=== PATIENT | female | born 1930 | race African-American/Black ===

== ENCOUNTER 2018-03-06 11:08 | Inpatient (IN) | payer MEDICARE, MEDICAID ==
[~2018-03-06] VITALS: Ht 149.9 cm; Wt 62.1 kg
[2018-03-06] MEDS ORDERED: MORPHINE SULFATE 4 MG/ML CPJ (NOT FOR IM USE) IV STA (13:06)
[2018-03-06] MEDS ORDERED: ONDANSETRON HCL 4MG/2ML INJ IV STA (13:06)
[2018-03-06] MEDS ORDERED: SODIUM CHLORIDE 0.9% 1,000 ML IV ONE (13:06)
[2018-03-06 13:58] LABS: BASOPHILS % 0.5 % (0.0-2.0); EOSINOPHILS % 0.6 % (0.0-5.0); HEMOGLOBIN. 13.3 g/dL (12.0-16.0); LYMPHOCYTES % 18.1 % (20.0-50.0); MEAN CORPUSCULAR VOLUME 90.5 fL (81.0-99.0); MEAN PLATELET VOLUME 7.9 fl (7.4-10.4); MONOCYTES % 7.8 % (2.0-8.0); PLATELET 445 x1000/uL (130-400); RED BLOOD CELL COUNT 4.43 mill/uL (4.2-5.4); RED CELL DISTRIBUTION WIDTH 14.4 % (11.6-14.6)
[2018-03-06 13:59] LABS: CHLORIDE 103 mEq/L (98-107)
[2018-03-06] MEDS ORDERED: SODIUM CHLORIDE 0.9% 1,000 ML IV SCH (16:33)
[2018-03-06] MEDS ORDERED: ONDANSETRON HCL 4MG/2ML INJ IV PRN (21:00)
[2018-03-06] MEDS ORDERED: KETOROLAC 15MG/ML VIAL IV PRN (21:00)
[2018-03-06] MEDS ORDERED: HYDROCODONE/ACETAMINOPHEN 10/325MG TABLET PO PRN (21:00)
[2018-03-06] MEDS ORDERED: ACETAMINOPHEN 325MG TABLET PO PRN (21:00)
[2018-03-06] MEDS ORDERED: MAGNESIUM/ALUMINUM HYDROXIDE/SIMETHICONE 30ML UDC PO PRN (21:00)
[2018-03-06] MEDS ORDERED: CLONIDINE 0.1MG TABLET PO PRN (21:00)
[2018-03-06 22:00] VITALS: BP 134/80
[2018-03-06] MEDS: SODIUM CHLORIDE 0.9% INJ 3ML FLUSH IVF SCH (22:00)
[2018-03-07] VITALS: BP 134/99
[2018-03-07 04:00] VITALS: BP 134/64
[2018-03-07] MEDS: SODIUM CHLORIDE 0.9% INJ 3ML FLUSH IVF SCH ×2 (05:51→14:47)
[2018-03-07 08:00] VITALS: BP 144/70
[2018-03-07] MEDS: MORPHINE SULFATE 4 MG/ML CPJ (NOT FOR IM USE) IV PRN ×2 (11:02→16:58)
[2018-03-07 12:00] VITALS: BP 129/53
[2018-03-07] MEDS ORDERED: SENNOSIDES 8.6MG TABLET PO PRN (14:30)
[2018-03-07] MEDS: ENOXAPARIN 30MG/0.3ML SYR SUBCUT SCH (14:43)
[2018-03-07] MEDS: CELECOXIB 200MG CAPSULE PO SCH (14:44)
[2018-03-07 16:00] VITALS: BP_SYST 129; BP_SYST 130; BP_DIAS 56; BP_DIAS 70
[2018-03-07] MEDS: DOCUSATE SODIUM 100MG CAPSULE PO SCH (16:54)
[2018-03-07] MEDS ORDERED: BISACODYL 10MG SUPP PR PRN (18:00)
[2018-03-07] MEDS ORDERED: NA PHOS,M-B/NA PHOS,DI-BA ENEMA 118ML PR PRN (18:00)
[2018-03-07] MEDS: LACTULOSE 20G/30ML UDC PO SCH ×2 (18:12→21:00)
[2018-03-07 20:00] VITALS: BP 120/64
[2018-03-07] MEDS: POLYETHYLENE GLYCOL 3350 (17GM) 1 DOSE PACK PO SCH (21:00)
[2018-03-08] VITALS (7 sets, daily range): BP systolic 110–128; BP diastolic 50–76
[2018-03-08] MEDS ORDERED: LIDOCAINE 5% PATCH TOP SCH (09:00)
[2018-03-08] MEDS ORDERED: CALCITONIN,SALMON, 3.7 ML NASAL SPRAY ONENSTRL SCH (09:00)
[2018-03-08] MEDS: CALCIUM CARBONATE/VITAMIN D3 500MG TABLET PO SCH ×2 (09:21→19:03)
[2018-03-08] MEDS: DOCUSATE SODIUM 100MG CAPSULE PO SCH ×2 (09:21→19:03)
[2018-03-08] MEDS: LACTULOSE 20G/30ML UDC PO SCH ×4 (09:21→21:00)
[2018-03-08] MEDS: CELECOXIB 200MG CAPSULE PO SCH (09:21)
[2018-03-08] MEDS: MORPHINE SULFATE 4 MG/ML CPJ (NOT FOR IM USE) IV PRN (09:23)
[2018-03-08] MEDS: ENOXAPARIN 30MG/0.3ML SYR SUBCUT SCH (09:27)
[2018-03-08] MEDS ORDERED: SORBITOL 70% SOLN 30ML PO NR (13:30)
[2018-03-08] MEDS: POLYETHYLENE GLYCOL 3350 (17GM) 1 DOSE PACK PO SCH (21:00)
[2018-03-08] MEDS: SODIUM CHLORIDE 0.9% INJ 3ML FLUSH IVF SCH (21:14)
== END 2018-03-08 23:41 | DRG 544 ==
LOC: ER 12:28 → 6EST 15:25 → ENRESERV 19:57 → EDBEDREQ 21:23
PROVIDERS: ADMIT Internal Medicine; ATTEND Internal Medicine
DX: M48.56XA Collapsed vertebra, not elsewhere classified, lumbar region, initial encounter for fracture (principal); M19.90 Unspecified osteoarthritis, unspecified site; K59.00 Constipation, unspecified; H91.90 Unspecified hearing loss, unspecified ear; M47.816 Spondylosis without myelopathy or radiculopathy, lumbar region; W01.0XXA Fall on same level from slipping, tripping and stumbling without subsequent striking against object, initial encounter; M48.05 Spinal stenosis, thoracolumbar region; Z88.0 Allergy status to penicillin; Y93.89 Activity, other specified; Y92.89 Other specified places as the place of occurrence of the external cause; Y99.8 Other external cause status
CPT/HCPCS: 36415; 72131; 72148; 72192; 73700; 80048; 93005; 96361; 96374; 96375; 97162; 97166; 97530; 97760; 99285; C1893; J1650; J2270; J2405; J7030

== ENCOUNTER 2018-03-08 23:43 | Inpatient (IN) | payer MEDICARE, MEDICAID ==
[~2018-03-08] VITALS: Ht 149.9 cm; Wt 62.1 kg
[2018-03-09 00:15] VITALS: BP 118/79
[2018-03-09] MEDS ORDERED: ACETAMINOPHEN 325MG TABLET PO PRN (00:45)
[2018-03-09] MEDS ORDERED: HYDROCODONE/ACETAMINOPHEN 10/325MG TABLET PO PRN (00:45)
[2018-03-09] MEDS ORDERED: SENNOSIDES 8.6MG TABLET PO PRN (00:45)
[2018-03-09] MEDS ORDERED: CLONIDINE 0.1MG TABLET PO PRN (00:45)
[2018-03-09] MEDS ORDERED: KETOROLAC 15MG/ML VIAL IV PRN (00:45)
[2018-03-09] MEDS ORDERED: NA PHOS,M-B/NA PHOS,DI-BA ENEMA 118ML PR PRN (00:45)
[2018-03-09] MEDS ORDERED: MORPHINE SULFATE 4 MG/ML CPJ (NOT FOR IM USE) IV PRN (00:45)
[2018-03-09] MEDS ORDERED: BISACODYL 10MG SUPP PR PRN (00:45)
[2018-03-09] MEDS ORDERED: MAGNESIUM/ALUMINUM HYDROXIDE/SIMETHICONE 30ML UDC PO PRN (00:45)
[2018-03-09] MEDS ORDERED: ONDANSETRON HCL 4MG/2ML INJ IV PRN (00:45)
[2018-03-09] MEDS ORDERED: KETOROLAC 30MG/ML VIAL IV PRN (01:15)
[2018-03-09] MEDS: SODIUM CHLORIDE 0.9% INJ 3ML FLUSH IVF SCH ×3 (06:52→22:00)
[2018-03-09 07:48] LABS: BASOPHILS % 0.3 % (0.0-2.0); EOSINOPHILS % 2.2 % (0.0-5.0); HEMATOCRIT. 34.7 % (36.0-48.0); HEMOGLOBIN. 11.4 g/dL (12.0-16.0); LYMPHOCYTES % 25.6 % (20.0-50.0); MEAN CORPUSCULAR HEMOGLOBIN 29.9 pg (28.0-32.0); MEAN CORPUSCULAR VOLUME 90.8 fL (81.0-99.0); MONOCYTES % 10.6 % (2.0-8.0); NEUTROPHILS % 61.3 % (40.0-76.0); PLATELET 350 x1000/uL (130-400); RED BLOOD CELL COUNT 3.82 mill/uL (4.2-5.4); RED CELL DISTRIBUTION WIDTH 14.3 % (11.6-14.6)
[2018-03-09 08:00] VITALS: BP 149/51
[2018-03-09 08:01] LABS: CHLORIDE 106 mEq/L (98-107)
[2018-03-09] MEDS: CALCITONIN,SALMON, 3.7 ML NASAL SPRAY ONENSTRL SCH (08:46)
[2018-03-09] MEDS: CALCIUM CARBONATE/VITAMIN D3 500MG TABLET PO SCH ×2 (08:46→16:58)
[2018-03-09] MEDS: DOCUSATE SODIUM 100MG CAPSULE PO SCH ×2 (08:46→16:58)
[2018-03-09] MEDS: LIDOCAINE 5% PATCH TOP SCH (08:46)
[2018-03-09] MEDS: LACTULOSE 20G/30ML UDC PO SCH ×4 (08:46→20:55)
[2018-03-09] MEDS: CELECOXIB 200MG CAPSULE PO SCH (08:47)
[2018-03-09] MEDS: PANTOPRAZOLE 40MG DR TABLET PO SCH (11:36)
[2018-03-09] MEDS: ENOXAPARIN 30MG/0.3ML SYR SUBCUT SCH (12:26)
[2018-03-09] MEDS: OXYCODONE HCL 5MG TABLET PO SCH ×2 (12:26→17:01)
[2018-03-09 20:00] VITALS: BP 132/61
[2018-03-09] MEDS: POLYETHYLENE GLYCOL 3350 (17GM) 1 DOSE PACK PO SCH (20:55)
[2018-03-10] MEDS: PANTOPRAZOLE 40MG DR TABLET PO SCH (06:14)
[2018-03-10] MEDS: SODIUM CHLORIDE 0.9% INJ 3ML FLUSH IVF SCH ×3 (06:16→21:26)
[2018-03-10 08:00] VITALS: BP 133/55
[2018-03-10] MEDS: LACTULOSE 20G/30ML UDC PO SCH ×5 (08:29→21:00)
[2018-03-10] MEDS: CELECOXIB 200MG CAPSULE PO SCH (08:29)
[2018-03-10] MEDS: CALCIUM CARBONATE/VITAMIN D3 500MG TABLET PO SCH ×2 (08:29→16:52)
[2018-03-10] MEDS: OXYCODONE HCL 5MG TABLET PO SCH ×3 (08:31→16:54)
[2018-03-10] MEDS: CALCITONIN,SALMON, 3.7 ML NASAL SPRAY ONENSTRL SCH (08:33)
[2018-03-10] MEDS: DOCUSATE SODIUM 100MG CAPSULE PO SCH ×2 (08:33→16:52)
[2018-03-10] MEDS: LIDOCAINE 5% PATCH TOP SCH (08:33)
[2018-03-10 13:05] VITALS: BP 109/43
[2018-03-10] MEDS: ENOXAPARIN 30MG/0.3ML SYR SUBCUT SCH (13:17)
[2018-03-10 16:20] VITALS: BP 135/50
[2018-03-10] MEDS ORDERED: KETOROLAC 15MG/ML VIAL IV PRN (18:15)
[2018-03-10 20:00] VITALS: BP 146/65
[2018-03-10] MEDS: POLYETHYLENE GLYCOL 3350 (17GM) 1 DOSE PACK PO SCH (21:00)
[2018-03-11] MEDS: OXYCODONE HCL 5MG TABLET PO SCH ×3 (05:29→18:14)
[2018-03-11] MEDS: SODIUM CHLORIDE 0.9% INJ 3ML FLUSH IVF SCH ×3 (05:32→21:46)
[2018-03-11 06:56] LABS: BASOPHILS % 0.3 % (0.0-2.0); EOSINOPHILS % 1.7 % (0.0-5.0); HEMATOCRIT. 35.1 % (36.0-48.0); HEMOGLOBIN. 11.6 g/dL (12.0-16.0); LYMPHOCYTES % 22.5 % (20.0-50.0); MEAN CORPUSCULAR VOLUME 90.9 fL (81.0-99.0); MEAN PLATELET VOLUME 8.2 fl (7.4-10.4); MONOCYTES % 11.5 % (2.0-8.0); PLATELET 343 x1000/uL (130-400); RED BLOOD CELL COUNT 3.86 mill/uL (4.2-5.4); RED CELL DISTRIBUTION WIDTH 14.1 % (11.6-14.6)
[2018-03-11 07:11] LABS: CHLORIDE 106 mEq/L (98-107)
[2018-03-11 07:30] LABS: PHOSPHORUS 2.7 mg/dL (2.5-4.9)
[2018-03-11 07:32] LABS: TOTAL IRON BINDING CAPACITY 219 ug/dL (250-450)
[2018-03-11 08:03] LABS: VITAMIN B12 SERUM 1662 pg/mL (211-911)
[2018-03-11 08:06] LABS: FOLIC ACID (FOLATE) SERUM > 20.00 ng/mL (>5.38)
[2018-03-11] MEDS: CELECOXIB 200MG CAPSULE PO SCH (08:18)
[2018-03-11] MEDS: LIDOCAINE 5% PATCH TOP SCH (08:18)
[2018-03-11] MEDS: FAMOTIDINE 20MG TABLET PO SCH (08:19)
[2018-03-11] MEDS: CALCIUM CARBONATE/VITAMIN D3 500MG TABLET PO SCH ×2 (08:19→18:12)
[2018-03-11] MEDS: DOCUSATE SODIUM 100MG CAPSULE PO SCH ×2 (08:27→18:13)
[2018-03-11] MEDS: LACTULOSE 20G/30ML UDC PO SCH ×2 (08:27→13:00)
[2018-03-11] MEDS: CALCITONIN,SALMON, 3.7 ML NASAL SPRAY ONENSTRL SCH (08:28)
[2018-03-11 08:51] VITALS: BP 135/64
[2018-03-11 11:31] LABS: FERRITIN 357 ng/mL (10-291)
[2018-03-11] MEDS: ENOXAPARIN 30MG/0.3ML SYR SUBCUT SCH (14:11)
[2018-03-11] MEDS: ACETAMINOPHEN 500MG TABLET PO SCH (17:00)
[2018-03-11] MEDS ORDERED: OXYCODONE HCL 5MG TABLET PO SCH (17:00)
[2018-03-11] MEDS: FERROUS SULFATE 325MG TABLET PO SCH (18:13)
[2018-03-11 20:00] VITALS: BP 137/55
[2018-03-11] MEDS: POLYETHYLENE GLYCOL 3350 (17GM) 1 DOSE PACK PO SCH (21:46)
[2018-03-12] MEDS: SODIUM CHLORIDE 0.9% INJ 3ML FLUSH IVF SCH ×2 (05:31→13:52)
[2018-03-12 08:00] VITALS: BP 130/56
[2018-03-12] MEDS: ACETAMINOPHEN 500MG TABLET PO SCH ×2 (08:51→13:00)
[2018-03-12] MEDS: CALCIUM CARBONATE/VITAMIN D3 500MG TABLET PO SCH (08:51)
[2018-03-12] MEDS: FAMOTIDINE 20MG TABLET PO SCH (08:51)
[2018-03-12] MEDS: FERROUS SULFATE 325MG TABLET PO SCH (08:51)
[2018-03-12] MEDS: DOCUSATE SODIUM 100MG CAPSULE PO SCH (08:51)
[2018-03-12] MEDS: CALCITONIN,SALMON, 3.7 ML NASAL SPRAY ONENSTRL SCH (08:52)
[2018-03-12] MEDS: OXYCODONE HCL 5MG TABLET PO SCH ×2 (08:52→13:00)
[2018-03-12 08:53] VITALS: BP 130/56
[2018-03-12] MEDS: LIDOCAINE 5% PATCH TOP SCH (08:53)
[2018-03-12] MEDS: ENOXAPARIN 30MG/0.3ML SYR SUBCUT SCH (13:33)
[2018-03-14 15:09] LABS: 25-HYDROXY VITAMIN D3 4.5 ng/mL (.)
== END 2018-03-12 14:00 | disposition left against medical advice (07) | DRG 552 ==
PROVIDERS: ADMIT Physical Medicine & Rehabilitation Spinal Cord Injury Medicine; ATTEND Internal Medicine
DX: S32.049A Unspecified fracture of fourth lumbar vertebra, initial encounter for closed fracture (principal); E44.1 Mild protein-calorie malnutrition; G82.20 Paraplegia, unspecified; K59.2 Neurogenic bowel, not elsewhere classified; W01.0XXA Fall on same level from slipping, tripping and stumbling without subsequent striking against object, initial encounter; Y93.89 Activity, other specified; Y92.89 Other specified places as the place of occurrence of the external cause; Y99.8 Other external cause status; M48.061 Spinal stenosis, lumbar region without neurogenic claudication; M47.816 Spondylosis without myelopathy or radiculopathy, lumbar region; M19.90 Unspecified osteoarthritis, unspecified site; K59.00 Constipation, unspecified; H91.90 Unspecified hearing loss, unspecified ear; E61.1 Iron deficiency; R26.9 Unspecified abnormalities of gait and mobility; R20.0 Anesthesia of skin; N31.9 Neuromuscular dysfunction of bladder, unspecified; M48.05 Spinal stenosis, thoracolumbar region; Z68.27 Body mass index [BMI] 27.0-27.9, adult; Z88.0 Allergy status to penicillin
CPT/HCPCS: 36415; 80048; 82306; 82607; 82728; 82746; 83540; 83550; 83735; 84100; 84134; 84443; 93970; 97116; 97162; 97167; 97530; 97535; J1650; J2270

== ENCOUNTER 2018-05-12 13:33 | Inpatient (IN) | payer MEDICARE, MEDICAID ==
[~2018-05-12] VITALS: Ht 144.8 cm; Wt 59.0 kg
[2018-05-12] MEDS ORDERED: SODIUM CHLORIDE 0.9% 1,000 ML IV ONE (17:56)
[2018-05-12] MEDS ORDERED: ONDANSETRON HCL 4MG/2ML INJ IV STA (17:56)
[2018-05-12 18:52] LABS: BASOPHILS % 0.5 % (0.0-2.0); EOSINOPHILS % 0.1 % (0.0-5.0); HEMATOCRIT. 36.7 % (36.0-48.0); HEMOGLOBIN. 12.1 g/dL (12.0-16.0); LYMPHOCYTES % 10.3 % (20.0-50.0); MEAN CORPUSCULAR HEMOGLOBIN 29.5 pg (28.0-32.0); MEAN CORPUSCULAR VOLUME 89.9 fL (81.0-99.0); MEAN PLATELET VOLUME 7.8 fl (7.4-10.4); MONOCYTES % 13.7 % (2.0-8.0); NEUTROPHILS % 75.4 % (40.0-76.0); PLATELET 453 x1000/uL (130-400); RED BLOOD CELL COUNT 4.08 mill/uL (4.2-5.4); RED CELL DISTRIBUTION WIDTH 14.9 % (11.6-14.6)
[2018-05-12 18:59] LABS: CHLORIDE 107 mEq/L (98-107)
[2018-05-12 19:01] LABS: INR 1.1; PARTIAL THROMBOPLASTIN TIME 28.8 sec (23.4-31.0); PROTHROMBIN TIME 10.7 sec (9.1-11.1)
[2018-05-12] MEDS ORDERED: POTASSIUM CHLORIDE 20MEQ TABLET SR PO ONE (20:30)
[2018-05-12] MEDS ORDERED: LEVOFLOXACIN 750MG PREMIX 150 ML IV ONE (21:45)
[2018-05-12] MEDS ORDERED: METRONIDAZOLE 500 MG PREMIX 100 ML IV ONE (21:45)
[2018-05-13] VITALS (7 sets, daily range): BP systolic 139–167; BP diastolic 64–78
[2018-05-13] MEDS ORDERED: CLONIDINE 0.1MG TABLET PO PRN (02:00)
[2018-05-13] MEDS ORDERED: ONDANSETRON HCL 4MG/2ML INJ IV PRN (02:00)
[2018-05-13] MEDS ORDERED: KETOROLAC 30MG/ML VIAL IV PRN (02:00)
[2018-05-13] MEDS ORDERED: POTASSIUM CHLORIDE INJ 40 MEQ in DEXT 5% WATER 250 ML IV SCH (03:00)
[2018-05-13] MEDS: SODIUM CHLORIDE 0.9% 1,000 ML IV SCH ×2 (04:13→22:06)
[2018-05-13] MEDS: METRONIDAZOLE 500 MG PREMIX 100 ML IV SCH ×3 (08:34→23:28)
[2018-05-13] MEDS ORDERED: NON FORMULARY PATIENT HOME MED XX SCH (10:45)
[2018-05-13] MEDS: HYDROCHLOROTHIAZIDE 12.5MG CAPSULE PO SCH (11:00)
[2018-05-13] MEDS ORDERED: LOSARTAN POTASSIUM 100 MG TABLET PO SCH (11:00)
[2018-05-13 11:32] LABS: HEMATOCRIT. 30.1 % (36.0-48.0); HEMOGLOBIN. 10.1 g/dL (12.0-16.0); MEAN CORPUSCULAR HEMOGLOBIN 29.6 pg (28.0-32.0); MEAN CORPUSCULAR VOLUME 88.6 fL (81.0-99.0); MEAN PLATELET VOLUME 7.1 fl (7.4-10.4); PLATELET 375 x1000/uL (130-400); RED CELL DISTRIBUTION WIDTH 15.1 % (11.6-14.6)
[2018-05-13 11:45] LABS: CHLORIDE 112 mEq/L (98-107)
[2018-05-13 14:08] LABS: PLATELET ESTIMATE NORMAL
[2018-05-13] MEDS ORDERED: LEVOFLOXACIN 500MG PREMIX 100 ML IV SCH (23:00)
[2018-05-14] VITALS: BP 148/73
[2018-05-14 04:00] VITALS: BP 154/68
[2018-05-14 06:31] LABS: BASOPHILS % 0.3 % (0.0-2.0); EOSINOPHILS % 1.6 % (0.0-5.0); HEMATOCRIT. 29.3 % (36.0-48.0); HEMOGLOBIN. 9.9 g/dL (12.0-16.0); LYMPHOCYTES % 15.5 % (20.0-50.0); MEAN CORPUSCULAR VOLUME 89.1 fL (81.0-99.0); MEAN PLATELET VOLUME 7.4 fl (7.4-10.4); MONOCYTES % 14.4 % (2.0-8.0); NEUTROPHILS % 68.2 % (40.0-76.0); PLATELET 381 x1000/uL (130-400); RED BLOOD CELL COUNT 3.29 mill/uL (4.2-5.4); RED CELL DISTRIBUTION WIDTH 15.2 % (11.6-14.6)
[2018-05-14 07:14] LABS: CHLORIDE 112 mEq/L (98-107)
[2018-05-14 08:00] VITALS: BP 179/77
[2018-05-14] MEDS: METRONIDAZOLE 500 MG PREMIX 100 ML IV SCH (08:06)
[2018-05-14 09:30] VITALS: BP 130/79
[2018-05-14] MEDS ORDERED: POTASSIUM CHLORIDE 20MEQ TABLET SR PO SCH (09:30)
[2018-05-14] MEDS: HYDROCHLOROTHIAZIDE 12.5MG CAPSULE PO SCH (09:41)
[2018-05-14] MEDS ORDERED: POTASSIUM CHLORIDE 20MEQ TABLET SR PO NR (11:00)
[2018-05-14 11:06] VITALS: BP 139/70
== END 2018-05-14 12:00 | disposition home or self-care (01) | DRG 392 ==
LOC: ER 14:21 → 5WST 22:31 → EDBEDREQ 22:34 → EDBEDREQTM 22:34 → ENRESERV 23:11
PROVIDERS: ADMIT Internal Medicine; ATTEND Internal Medicine
DX: K52.9 Noninfective gastroenteritis and colitis, unspecified (principal); R65.10 Systemic inflammatory response syndrome (SIRS) of non-infectious origin without acute organ dysfunction; G89.29 Other chronic pain; R42 Dizziness and giddiness; M47.816 Spondylosis without myelopathy or radiculopathy, lumbar region; M54.5 Low back pain; M19.90 Unspecified osteoarthritis, unspecified site; Z90.710 Acquired absence of both cervix and uterus; Z88.0 Allergy status to penicillin
CPT/HCPCS: 36415; 71045; 74176; 80048; 83605; 83735; 83880; 84484; 93005; 93970; 96361; 96365; 96368; 96375; 97162; 99285; J1885; J1956; J2405; J3480; J3490; J7030; J7060